=== PATIENT | male | born 1990 | race Caucasian/White ===

== ENCOUNTER 2024-01-14 10:44 | Emergency (ER) | payer MEDICAID, SELFPAY ==
[2024-01-14 10:46] VITALS: BP 119/82; PULSE 118; RESP 18; TEMP 36.5; O2SAT 97; BMI 32.6
--- NOTE | 2024-01-14 10:56 | EX.ED.VIS.PS ---
HPI HPI - Psych History of Present Illness Chief Complaint: Mental Health Informant: patient Narrative Narrative: History bipolar disorder with depression and brought in by PD from [facility] for plan placement. Reported court appointed guardian sent here for placement. Patient states while at the [facility] he yelled at staff members a couple times where police was called. There was no physical altercation. He denies suicidal homicidal ideations. Denies any auditory or visual hallucinations. He has been at the facility for the past month. Prior that he was in [place] he states he was admitted to [facility] for a couple weeks. Current medication trazodone, Remeron, Depakote, as needed ibuprofen. He denies any alcohol or any illicit drug use. Denies any medical complaints. Prior similar symptoms: Yes PFSH PFSH Allergy/AdvReac Type Severity Reaction Status Date / Time No Known Allergies Allergy Verified 01/14/24 10:45 Social History Smoking Status: Current every day smoker tobacco type: cigarettes ROS ROS ED Constitutional Constitutional ED: Denies chills, fever(s) or sweats Eyes Eyes: Denies change in vision ENT ENT ED: Denies dysphagia or sore throat Cardiovascular Cardiovascular: Denies chest pain, leg edema, palpitations or racing heartbeat Respiratory/Chest Respiratory/Chest: Denies cough, dyspnea or dyspnea on exertion Gastrointestinal Gastrointestinal: Denies abdominal pain, diarrhea, nausea or vomiting Genitourinary Genitourinary ED: Denies dysuria, hematuria or urinary frequency Musculoskeletal Musculoskeletal: Denies back pain, extremity pain or neck pain Integumentary Denies rash or wounds Neurologic Neurologic: Denies headache(s), paresthesias or weakness Psychiatric Psychiatric: Denies suicidal ideation or suicidal thoughts EXAM Physical Exam Const Vital Signs: 01/14/24 10:46 01/14/24 12:26 Temperature 97.7 F L Temperature Source Temporal Pulse Rate 118 H 84 Respiratory Rate 18 Blood Pressure 119/82 H 132/88 H Blood Pressure Mean 94 102 Pulse Ox 97 99 Oxygen Delivery Method Room Air Room Air Positive well nourished and well developed General Appearance ED: well developed and NAD HEENT Reports moist mucous membranes normocephalic and atraumatic Eyes EOMs intact bilaterally and conjunctivae normal General Eye ED: Yes normal appearance of both eyes Neck no lymphadenopathy and supple General: Negative for tenderness Chest Wall Chest: Negative for tenderness Resp normal respiratory effort and normal air movement Effort and Inspection: symmetric chest movement; Negative for respiratory distress Cardio regular rhythm and no murmurs Rate: tachycardic Peripheral Pulses: pulses 2+ throughout GI normal to inspection, nondistended, normoactive bowel sounds and non-tender Palpation: Negative for guarding or rebound tenderness present Back/Spine no CVA tenderness and no thoracic nor lumbar tenderness Extremity normal to inspection General Extremety ED: Negative for edema or tenderness General Extremity: Negative for edema Neuro oriented x3 and no sensory deficits noted Sensorium / Orientation: awake and alert Psych Psych Narrative: Cooperative, denies suicidal or homicidal ideations. Skin no rashes or lesions noted and no wounds MDM MDM MDM Narrative Medical decision making narrative: Interventions / MDM: Differential diagnosis: Bipolar disorder with depression, agitation Diagnosis considered but do not suspect: N/A My EKG interpretation: N/A Imaging independently reviewed and interpreted by myself: N/A External documents reviewed: N/A Test considered but not ordered:N/A ED course: Patient cooperative, denies suicidal or homicidal ideations. Court appointed paperwork was sent with the patient from environmental attorney for him to be placed. Medical clearance labs will be ordered. 1220: Labs stable toxicology positive for THC. Alcohol negative. Patient requested his home meds include nicotine patch pain apparently he does smoke when rediscuss after the request. Nicotine patch ibuprofen for his chronic leg pains, hydroxyzine for his anxiety symptoms. He is medically cleared. Will await crisis evaluation. 1545: Patient requesting Ativan for his anxiety. This was ordered 1 mg p.o. Awaiting plans for placement. 1845: Patient accepted to [facility] to psychiatry service. Re-evaluation: stable Disposition discussed with patient/family/significant other: Case discussed with consulting clinician: N/A This note was generated with [employer] dictation software. It may contain incorrect words, spelling, and punctuation that were not noted in checking the note before signing. Lab Data Attestation: I reviewed the patient's lab results. Labs: Laboratory Results - last 24 hr 01/14/24 01/14/24 11:03 11:14 WBC 4.9 RBC 4.24 L Hgb 13.4 Hct 40.2 MCV 94.8 H MCH 31.6 MCHC 33.3 RDW Std Deviation 40.4 RDW Coeff of Tanya 11.8 Plt Count 212 MPV 9.8 Immature Gran % (Auto) 0.200 Neut % (Auto) 55.8 Lymph % (Auto) 32.3 Mchenry % (Auto) 8.1 Eos % (Auto) 2.2 Baso % (Auto) 1.4 H Absolute Neuts (auto) 2.8 Absolute Lymphs (auto) 1.59 Nucleated RBC % 0 Sodium 139 Potassium 3.8 Chloride 106 Carbon Dioxide 30.0 Anion Gap 3 L BUN 14 Creatinine 0.83 Estim Creat Clear Calc 156.91 Est GFR (MDRD) Af Amer 137 Est GFR (MDRD) Non-Af 113 BUN/Creatinine Ratio 16.9 Glucose 84 Calcium 8.8 Urine Opiates Screen NEGATIVE Urine Methadone Screen NEGATIVE Ur Barbiturates Screen NEGATIVE Ur Phencyclidine Scrn NEGATIVE Ur Amphetamines Screen NEGATIVE MDMA (Ecstasy) Screen NEGATIVE U Benzodiazepines Scrn NEGATIVE Urine Cocaine Screen NEGATIVE U Cannabinoids Screen POSITIVE H Ur Drug Screen Comment Ethyl Alcohol < 3.0 Discharge Plan Triage Chief Complaint: Mental Health ED Provider: Gautam Ball Dx/Rx/DC Orders Clinical Impression: Bipolar disorder, Depression Primary Care Provider: Care Physician,No Primary Referrals: NOT,DEFINED [Non-Staff] - Print Language: Romansh Disposition Disposition: Psychiatric Hospital or Unit
--- NOTE | 2024-01-14 11:02 | ED.RN ---
Court order from [facility] is in the pocket.
[2024-01-14 11:20] LABS: Amphetamine Urine VISTA NEGATIVE (<1000 ng/mL); Barbiturate Urine VISTA NEGATIVE (< 200 ng/mL); Benzodiazepine Urine VISTA NEGATIVE (< 200 ng/mL); Cocaine Urine VISTA NEGATIVE (< 300 ng/mL); Ecstacy Urine VISTA NEGATIVE (< 500 ng/mL); Methadone Urine VISTA NEGATIVE (< 300 ng/mL); PCP Urine VISTA NEGATIVE (< 25 ng/mL); THC Urine VISTA POSITIVE (< 50 ng/mL); Vista UDS pH Range 7
[2024-01-14 11:21] LABS: Absolute Lymphocyte Count 1.59 X10^3/uL (0.83-4.51); Absolute Neutrophil Count 2.8 X10^3/uL (2.0-7.7); Basophil# 0.07 X10^3/uL; Basophil% 1.4 % (0-1); Eosinophil# 0.11 X10^3/uL; Eosinophils% 2.2 % (0-5); Hematocrit 40.2 % (40-54); Hemoglobin 13.4 g/dL (13.0-16.5); Lymphocyte # 1.59 X10^3/ul (0.83-4.51); Lymphocyte % 32.3 % (19-41); Mean Corp Hgb Conc 33.3 g/dL (32-36); Mean Corpuscular Hgb 31.6 pg (27.0-32.0); Mean Corpuscular Volume 94.8 fL (80-94); Mean Platelet Vol. 9.8 fl (6.2-12.0); Monocyte% 8.1 % (0-10); NRBC Flagged by Analyzer 0 % (0-5); Neutrophil # 2.75 X10^3/uL (2.7-7.7); Neutrophil % 55.8 % (47-70); Platelet Count 212 K/mm3 (150-450); RBC Distribution Width CV 11.8 % (11.6-14.6); RBC Distribution Width SD 40.4 fl (35.1-43.9); Red Blood Count 4.24 M/mm3 (4.6-6.2); White Blood Count 4.9 K/mm3 (4.4-11.0)
[2024-01-14 11:33] LABS: Alcohol, Blood (Medical)-Serum < 3.0 mg/dL
[2024-01-14 11:34] LABS: Anion Gap 3 (5-15); BUN 14 mg/dL (7-18); BUN/Creat Ratio 16.9 RATIO (10-20); Calcium,Total 8.8 mg/dL (8.5-10.1); Chloride 106 mmol/L (98-107); Creatinine, Serum 0.83 mg/dL (0.70-1.30); EST Glomerular Filtration Rate 113 mL/min (>60); Est Glom Filt Rate - Afr Amer 137 mL/min (>60); Estimated Creatinine Clearance 156.91 ml/min; Glucose 84 mg/dL (74-106); Potassium 3.8 mmol/L (3.5-5.1); Sodium Level 139 mmol/L (136-145)
[2024-01-14] MEDS: hydrOXYzine PAM 25 MG Capsule 50 MG PO (12:01)
[2024-01-14] MEDS: Ibuprofen 600 MG Tablet PO (12:01)
--- NOTE | 2024-01-14 12:23 | ED.RN ---
Patient given lunch meal tray and cup of water.
--- NOTE | 2024-01-14 12:24 | ED.RN ---
Per Lotus at Crisis, they do not have to assess him due to the court order. They will fax everything to [place] and attempt to use a [facility] bed due to the court order being from [facility]. If not, they will use the patient's insurance and try to get him to [place] for placement.
[2024-01-14 12:26] VITALS: BP 132/88; PULSE 84; O2SAT 99
--- NOTE | 2024-01-14 12:34 | ED.RN ---
Micheal Ch, guardian, called and wanted to see if we can set up transport for pt to go to [place]. He stated that the patient has a tendency to get violent and shouldn't go by [facility]. I told the guardian that we don't send people to facilities by [facility] and it would be by EMS or law enforcement. Dr Ball was updated on what is happening.
--- NOTE | 2024-01-14 14:31 | NURSING ---
PER STORM AT CRIS[facility], [facility] HAS NO BEDS UNTIL AT LEAST NEXT WEEK. SHE SPOKE WITH GUN WELDER AND GUARDIAN AND SHE IS WORKING ON PLACEMENT AT A DIFFERENT FACILITY.
--- NOTE | 2024-01-14 15:05 | NURSING ---
REFEREED TO [facility]
[2024-01-14] MEDS: LORazepam 1 MG Tablet PO (16:00)
--- NOTE | 2024-01-14 18:14 | ED.RN ---
Physicians called ETA for squad is [phone]
--- NOTE | 2024-01-14 18:23 | ED.RN ---
Physicians called and outsourced run. [facility] will be here to get patient at 2030.
[2024-01-14 19:33] VITALS: BP 140/92; PULSE 75; RESP 18; TEMP 35.8; O2SAT 93
--- NOTE | 2024-01-14 19:37 | ED.RN ---
Pt leaving by ernie for placement at [facility]. No nurse to nurse information provided, this RN unable to provide report at this time
== END 2024-01-14 19:38 ==
PROVIDERS: Emergency Provider Emergency Medicine; Visit Provider Emergency Medicine
DX: F31.9 Bipolar disorder, unspecified (principal); F41.9 Anxiety disorder, unspecified; G89.29 Other chronic pain; M79.606 Pain in leg, unspecified; F17.210 Nicotine dependence, cigarettes, uncomplicated
CPT/HCPCS: 36415; 80048; 80307; 82077; 85025; 99284